=== PATIENT | male | born 1960 | race American Indian/Alaskan Native ===

== ENCOUNTER 2019-07-20 08:40 | Outpatient (CLI) | payer OTHER ==
--- NOTE | 2019-07-20 10:34 | XRay Report ---
RIGHT HIP 2 VIEWS INDICATION: PAIN OF BACK AND RIGHT LOWER EXTREMITY. COMPARISON: None. IMPRESSION: No acute osseous or soft tissue abnormality. Moderate superior joint space narrowing is identified consistent with osteoarthritis. No evidence for osteonecrosis or bone lesion. Signer Name: Alex Andres Jr, MD Signed: 07/20/2019 10:29 AM Workstation Name: [id number]
--- NOTE | 2019-07-20 17:58 | XRay Report ---
Right knee-3 views INDICATION: KNEE PAIN, RIGHT ANTERIOR. COMPARISON: None. IMPRESSION: No acute osseous or soft tissue abnormality. No significant DJD. Signer Name: Brian Amato MD Signed: 07/20/2019 5:54 PM Workstation Name: [id number]
--- NOTE | 2019-07-20 18:00 | XRay Report ---
SI joints-5 total views INDICATION: PAIN OF BACK AND LOWER RIGHT LOWER EXTREMITY. COMPARISON: None. 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
--- NOTE | 2019-07-24 15:15 | XRay Report ---
LUMBAR SPINE 7 VIEWS INDICATION / CLINICAL INFORMATION: PAIN OF BACK AND RIGHT LOWER EXTREMITY. COMPARISON: None available. FINDINGS: VERTEBRAE: No fracture. Grade 1 anterolisthesis L4 on L5 measures 3 mm DISC SPACES:Moderate discogenic degenerative disease L2-3 with mild discogenic degenerative disease L 4-5 FACET JOINTS:Moderate facet degenerative disease L4-S1 ADDITIONAL FINDINGS: None. IMPRESSION: 1. 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
== END 2019-07-20 08:41 | disposition home or self-care (01) ==
LOC: SPVIMAG 08:40
PROVIDERS: ATTEND Internal Medicine
DX: M16.11 Unilateral primary osteoarthritis, right hip (principal); M47.898 Other spondylosis, sacral and sacrococcygeal region; M25.561 Pain in right knee; M54.9 Dorsalgia, unspecified
CPT/HCPCS: 72110; 72202